=== PATIENT | female | born 1935 | race Caucasian/White ===

== ENCOUNTER 2017-06-18 13:42 | Outpatient (CLI) | payer MEDICARE, BC ==
--- NOTE | 2017-06-18 15:36 | MRI ---
MRI LUMBAR SPINE WITHOUT CONTRAST: Date: 06/18/17 HISTORY: Lumbar radiculopathy. Low back pain radiating down right leg since November 2016. COMPARISON: None. TECHNIQUE: MRI lumbar spine is performed without intravenous Gadolinium administration. Multisequential, multipl faby imaging is performed. FINDINGS: Appropriate T1 marrow signal intensity of the lumbar vertebra. Lumbar spine vertebral body height is maintained. No fracture. Intrinsic T1 and T2 hyperintensity at the L4 level compatible with a hemangi nydia. There are predominantly Type II Modic changes at the L5-S1 disc space. Symmetric signal intensity of the psoas muscles. Bilateral parapelvic cysts are noted. Conus medullaris terminates at the superior aspect of L1. No significant STIR hyperintensity to suggest edema of the vertebral bodies or ligamentous injury. Mi ld hyperintensity on the right aspect of the L4-L5 disc space due to Type I Modic change. T12-L1: Adequate disc hydration. No significant central canal stenosis or foraminal narrowing. L1-L2: Adequate disc hydration. No significant central canal stenosis or foraminal narrowing. L2-3: Adequate disc hydration. Minimal central disc bulge with a T2 hyperintensity suggesting an annular fi ssure. There is associated minimal protrusion. Mild ligamentum flavum thickening and facet hypertroph y. Overall, mild central canal stenosis. Neural foramina are patent bilaterally. L3-L4: Desiccation with mild loss of disc space height. There is a small left subarticular and left foramina l disc bulge with faint T2 hyperintensity suggesting a very tiny annular fissure. There is mild narro wing of the left subarticular zone without significant obscuration traversing left L3 nerve root. Ove rall, mild central canal stenosis. Right neural foramen is patent. Mild left foraminal narrowing. L4-L5: Desiccation with mild loss of disc space height. Generalized disc bulge, ligamentum flavum thickening , and facet hypertrophy result in mild to moderate central canal stenosis. Narrowing of both subartic ular zones with partial obscuration of bilateral traversing L5 nerve roots. Moderate right and mild l eft foraminal narrowing. L5-S1: Desiccation with mild loss of disc space height. Generalized disc bulge with disc material encroachin g on both subarticular zones. Partial obscuration of bilateral S1 nerve roots. Moderate to severe hernán ateral foraminal narrowing. 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 POS: [facility]
== END 2017-06-18 13:43 | disposition home or self-care (01) ==
LOC: SCSMRI 13:42
PROVIDERS: ATTEND Family Medicine
DX: M47.26 Other spondylosis with radiculopathy, lumbar region (principal)
CPT/HCPCS: 72148

== ENCOUNTER 2017-07-17 12:49 | Outpatient (CLI) | payer MEDICARE, BC ==
[2017-07-17 14:12] LABS: Hemoglobin 13.6 g/dL (12.0-16.0); Mean Corpuscular HGB CONC 33.3 g/dL (32.0-36.0); Mean Corpuscular Volume 96.1 fl (81.0-99.0); Platelet Count 217 thou/uL (130-400); RBC Distribution Width 12.2 % (11.5-14.5); Red Blood Cell (RBC) Count 4.26 mill/uL (4.20-5.40); White Blood Cell (WBC) Count 6.6 thou/uL (4.8-10.8)
[2017-07-17 14:18] LABS: PTT 26.3 SEC (22.9-36.1); Prothrombin Time 13.7 SEC (12.0-14.7)
[2017-07-17 14:37] LABS: ALT (SGPT) 16 U/L (8-55); AST (SGOT) 18 U/L (5-34); Alkaline Phosphatase 41 U/L (40-150); Anion Gap 9 mmol/L (10-20); BUN (Urea Nitrogen) 21 mg/dL (9.8-20.1); Bilirubin, Total 0.5 mg/dL (0.2-1.2); Calc. Creatinine Clearance 0 mL/min (70-130); Calcium 9.7 mg/dL (7.8-10.44); Carbon Dioxide 30 mmol/L (23-31); Chloride 105 mmol/L (98-107); Estimated GFR-MDRD 60; Globulin 3.4 g/dL (2.4-3.5); Glucose 93 mg/dL (83-110); Potassium 4.4 mmol/L (3.5-5.1); Protein, Total 7.4 g/dL (6.0-8.3); Sodium 140 mmol/L (136-145)
== END 2017-07-17 12:50 | disposition home or self-care (01) ==
LOC: LABBT 12:49
PROVIDERS: ATTEND Internal Medicine Cardiovascular Disease
DX: Z01.818 Encounter for other preprocedural examination (principal); K80.20 Calculus of gallbladder without cholecystitis without obstruction
CPT/HCPCS: 80053; 85027; 85610; 85730; 93005; 93010

== ENCOUNTER 2017-07-22 06:03 | Observation (INO) | payer MEDICARE, BC ==
[2017-07-22] MEDS ORDERED: Lidocaine 1% (PF) 30 ML VIAL ONE (06:36)
[2017-07-22] MEDS ORDERED: Heparin 10,000 UNITS/1 ML VIAL ONE (07:10)
[2017-07-22] MEDS ORDERED: Fentanyl 100 MCG/2 ML VIAL ONE (07:12)
[2017-07-22] MEDS ORDERED: Midazolam HCl 2 mg/2 ml Vial ONE (07:12)
[2017-07-22] MEDS ORDERED: Nitroglycerin 100MG/250ML BOT 250 ML ONE (07:42)
[2017-07-22] MEDS ORDERED: Clopidogrel Bisulfate 300 MG TAB ONE ×2 (07:46)
[2017-07-22] MEDS ORDERED: Bivalirudin 250 MG VIAL ONE ×3 (07:46→08:15)
--- NOTE | 2017-07-22 08:07 | RAD ---
SINGLE VIEW OF CHEST: Date: 07/22/17 COMPARISON: None. HISTORY: Preoperative radiograph for cardiac catheterization. FINDINGS: Single view of the chest shows a normal sized cardiomediastinal silhouette. There is no evidence of c onsolidation, mass, or pleural effusion. The bones are unremarkable. IMPRESSION: No evidence of acute cardiopulmonary disease. POS: [facility]
--- NOTE | 2017-07-22 09:02 | CCL ---
CARDIAC CATHETERIZATION REPORT: DATE: 07/22/17. PROCEDURE: selective coronary arteriography, left ventriculography intracoronary nitroglycerin. Bare metal stent placement in the mid right coronary artery ( spinal injections in the near future) INDICATION: Proximal to mid inferior wall ischemia on cardiac PET scan. DESCRIPTION OF PROCEDURE: The patient was brought to the Cardiac Lift Operator and the right groin was prepped and draped in the usual fashion. 1% lidocaine was infiltrated. A 6 [place] sheath was placed into the right femoral artery and 3000 units of heparin were given. A 6 [place] angulated pigtail was inserted and pressures obtained. Left ventriculogram was performed using 30 mL of contrast at 12 mL per second in an [place] 30 degree projection. Pressures were obtained and the pigtail was removed. A 6 [place] Delgado left 4 was inserted over an exchange wire followed by a 6- [place] Delgado right 4 over an exchange wire for coronary arteriography. A 6-[place] right 4 guide was inserted over an exchange wire. Intracoronary nitroglycerin 200 mcg was given. A floppy choice wire was advanced into the distal right coronary artery. The more proximal of the 2 mid RCA lesions was predilated with Emerge 2.5 x 15 mm balloon. This was then removed and Rebel 3.0 x 12 mm stent was then advanced to the more distal of the mid RCA lesions. This was then deployed. Distal to the stent, there appeared to be bending of the artery and it was not felt that this was a dissection. The more proximal of the 2 mid RCA lesions then underwent placement of a Rebel 3.0 x 16 mm stent with good results. The wire was then pulled back across the area in question distal to the most distal stent and there did not appear to be any dissection. The wire was then removed and the final injections were performed. During the procedure, the patient received Fentanyl 25 mg and Versed 1 mg for conscious sedation. Also, Plavix 600 mg p.o. was given and Angiomax bolus and drip were given. The sheaths were sutured in place. The patient was transferred to the holding area in stable condition. RESULTS: PRESSURES: Aorta 176/90, mean of 126 Left Ventricle 151/2 LEFT VENTRICULOGRAM: there was normal left ventricular contractility with ejection fraction of 50-55% . CORONARY ARTERIOGRAPHY: 1. Left main was normal. 2. The LAD continued to have good mid LAD stent result disease (September 2009) Promus 3.0 x 15. The second diagonal had a 99% stenosis and was less than a 1 mm vessel. The second diagonal filled retrograde from the left. 3. The circumflex continued to have good obtuse marginal-1 stent result (September 2009 Promus 2.5 x 12, both inserted in [place]). 4. The right coronary artery had a 90% mid stenosis followed by 70%. INTERVENTION RESULTS: The more distal of the mid lesions was initially 70%. Final lesion was 0%. The more proximal to mid RCA lesion was initially 90% and final lesion was 0%. The stents were not overlapping. IMPRESSION: 1. Three-vessel coronary artery disease. 2. Normal left ventricular function. 3. Successful bare metal stent placement in the right coronary artery. POS: [facility]
[2017-07-22] MEDS ORDERED: Iopamidol 370 76% 50 ML VIAL FS ONE (13:55)
[2017-07-22] MEDS ORDERED: Iopamidol 370 76% 100 ML VIAL ONE (13:55)
[2017-07-22] MEDS ORDERED: traMADol HCl 50 MG TAB ONE (14:08)
[2017-07-22] MEDS ORDERED: Sodium Chloride 0.9% 1,000 ML IV SCH (15:18)
[2017-07-22] MEDS ORDERED: ALPRAZolam 0.25 MG TAB PO PRN (15:18)
[2017-07-22] MEDS ORDERED: traMADol HCl 50 MG TAB PO PRN (15:18)
[2017-07-22 15:33] VITALS: BMI 29.5
[2017-07-22] MEDS ORDERED: Aspirin 81 mg Enteric Coated Tablet PO SCH (17:10)
[2017-07-22] MEDS ORDERED: Clopidogrel Bisulfate 75 MG TAB PO SCH (17:15)
[2017-07-22] MEDS ORDERED: Lisinopril 2.5 MG TAB PO SCH (17:15)
--- NOTE | 2017-07-22 21:06 | EKG ---
Test Reason : POST STENTS X 2-RCA Blood Pressure : / mmHG Vent. Rate : 068 BPM Atrial Rate : 068 BPM P-R Int : 162 ms QRS Dur : 090 ms QT Int : 414 ms P-R-T Axes : 033 -28 009 degrees QTc Int : 440 ms Normal sinus rhythm Minimal voltage criteria for LVH, may be normal variant Septal infarct (cited on or before 17-JUL-2017) (Not definitively seen on 07/22/17 tracing. Abnormal ECG When compared with ECG of 17-JUL-2017 12:39, (Unconfirmed) Questionable change in initial forces of Anteroseptal leads Nonspecific T wave abnormality no longer evident in Lateral leads Confirmed by DEEPTHI MONET ([id number]) on 07/22/2017 9:06:28 PM Referred By: ELIZABETH Confirmed By:DEEPTHI MONET
[2017-07-23 05:13] LABS: #Eosinphils 0.3 thou/uL (0.0-0.7); #Lymphocytes 1.9 thou/uL (1.20-3.40); #Monocytes 0.5 thou/uL (0.11-0.59); #Neutrophils 3.8 thou/uL (1.40-6.50); %Basophils 0.7 % (0.0-1.0); %Eosinophils 4.6 % (0.0-10.0); %Lymphocytes 29.5 % (21.0-51.0); %Monocytes 7.6 % (0.0-10.0); %Neutrophils 57.6 % (42.0-75.0); Hemoglobin 12.5 g/dL (12.0-16.0); Mean Corpuscular HGB CONC 33.4 g/dL (32.0-36.0); Mean Corpuscular Hemoglobin 32.1 pg (27.0-31.0); Mean Corpuscular Volume 96.1 fl (81.0-99.0); Mean Platelet Volume 7.7 fL (7.4-10.4); Platelet Count 191 thou/uL (130-400); RBC Distribution Width 12.2 % (11.5-14.5); Red Blood Cell (RBC) Count 3.89 mill/uL (4.20-5.40); White Blood Cell (WBC) Count 6.5 thou/uL (4.8-10.8)
[2017-07-23 05:21] LABS: ALT (SGPT) 12 U/L (8-55); AST (SGOT) 16 U/L (5-34); Albumin 3.5 g/dL (3.4-4.8); Alkaline Phosphatase 41 U/L (40-150); Anion Gap 8 mmol/L (10-20); BUN (Urea Nitrogen) 20 mg/dL (9.8-20.1); Bilirubin, Total 0.8 mg/dL (0.2-1.2); Calc. Creatinine Clearance 62 mL/min (70-130); Calcium 8.8 mg/dL (7.8-10.44); Carbon Dioxide 28 mmol/L (23-31); Chloride 103 mmol/L (98-107); Estimated GFR-MDRD 61; Globulin 2.8 g/dL (2.4-3.5); Glucose 101 mg/dL (83-110); Protein, Total 6.3 g/dL (6.0-8.3); Sodium 135 mmol/L (136-145)
[2017-07-23] MEDS ORDERED: Vit A,C & E/Lutein/Minerals Tablet PO SCH (09:00)
[2017-07-23] MEDS ORDERED: Lisinopril 2.5 MG TAB PO SCH (09:00)
[2017-07-23] MEDS ORDERED: Aspirin 81 mg Enteric Coated Tablet PO SCH ×2 (09:00)
[2017-07-23] MEDS ORDERED: Clopidogrel Bisulfate 75 MG TAB PO SCH (09:00)
[2017-07-23] MEDS ORDERED: Ubidecarenone 50 MG CAP PO SCH (09:00)
[2017-07-23] MEDS ORDERED: Potassium Chloride 8 MEQ TAB PO SCH (09:00)
[2017-07-23 10:23] VITALS: BP 124/57; TEMP 98.2
--- NOTE | 2017-07-23 18:46 | DIS ---
DISCHARGE DIAGNOSES: 1. Placement of REBEL 3.0 x 12 mm stent in the mid right coronary artery and proximal to this, but n ot overlapping, REBEL 3.0 x 16 mm stent. 2. Proximal to mid inferior wall ischemia, on cardiac PET. 3. Previous Promus stents in the left anterior descending and circumflex in 2009 and await those con tinued good results at this time. 4. Myocardial infarction in 2009. 5. Hypertension. 6. Hypercholesterolemia, under poor control, also pain with statins. Most recent LDL 87, on no medi cations. 7. Venous insufficiency. DISCHARGE MEDICATIONS: Livalo 1 mg 1/2 tablet daily will be started. Ecotrin 81 mg daily, Plavix 75 mg daily x1 month only, Xanax 0.25 p.r.n., calcium, magnesium, zinc 1 daily, fenofibrate 40 mg daily , isosorbide mononitrate 30 mg 1/2 daily, lisinopril 2.5 daily, potassium gluconate 500 daily, tramad ol 50 mg q.8 hours p.r.n., CoQ10 of 100 mg daily, multivitamins. DISCHARGE DISPOSITION: The patient will be seen in 3 months for fasting lipid profile and comprehens gutierrez metabolic profile. If she does have muscle aches with statins, she was instructed to call us and consideration will be given to injectable medication. HOSPITAL COURSE: Ms. Cuevas complained of exertional chest discomfort when she had been working in [employer], relieved with rest in 3-4 minutes. She underwent cardiac PET scan, which revealed proxima l and mid inferior wall ischemia. She underwent cardiac catheterization, which revealed continued go od mid LAD and obtuse marginal 1 stent. The right coronary artery had a 90% mid stenosis followed by another 70% mid stenosis. She underwent placement of REBEL 3.0 x 12 mm and 3.0 x 16 mm. The stents were not overlapping. She was observed overnight and then discharged. She will be given a trial of low dose Livalo.
[2017-07-23] MEDS ORDERED: Fenofibrate Nanocrystallized 145 MG TAB PO SCH (21:00)
--- NOTE | 2017-07-24 08:05 | EKG ---
Test Reason : Blood Pressure : / mmHG Vent. Rate : 075 BPM Atrial Rate : 075 BPM P-R Int : 158 ms QRS Dur : 088 ms QT Int : 410 ms P-R-T Axes : 048 -27 -12 degrees QTc Int : 457 ms Normal sinus rhythm Minimal voltage criteria for LVH, may be normal variant Borderline ECG When compared with ECG of 22-JUL-2017 09:16, No significant change was found Confirmed by DEEPTHI MONET ([id number]) on 07/24/2017 8:05:07 AM Referred By: ELIZABETH Confirmed By:DEEPTHI MONET
== END 2017-07-23 11:29 | disposition home or self-care (01) ==
LOC: CCL 06:03 → INTOOBSV 12:27 → 2NO 12:27
PROVIDERS: ADMIT Internal Medicine Cardiovascular Disease; ATTEND Internal Medicine Cardiovascular Disease
PROC: 02713EZ Dilation of Coronary Artery, Two Arteries with Two Intraluminal Devices, Percutaneous Approach (ICD-10-PCS; principal; 2017-07-22)
PROC: 02703ZZ Dilation of Coronary Artery, One Artery, Percutaneous Approach (ICD-10-PCS; 2017-07-22)
PROC: 4A023N8 Measurement of Cardiac Sampling and Pressure, Bilateral, Percutaneous Approach (ICD-10-PCS; 2017-07-22)
PROC: B2111ZZ Fluoroscopy of Multiple Coronary Arteries using Low Osmolar Contrast (ICD-10-PCS; 2017-07-22)
DX: I25.10 Atherosclerotic heart disease of native coronary artery without angina pectoris (principal); I25.2 Old myocardial infarction; I10 Essential (primary) hypertension; E78.00 Pure hypercholesterolemia, unspecified; E78.5 Hyperlipidemia, unspecified; K21.9 Gastro-esophageal reflux disease without esophagitis; G47.00 Insomnia, unspecified; G25.0 Essential tremor; J32.9 Chronic sinusitis, unspecified; I87.2 Venous insufficiency (chronic) (peripheral); E66.9 Obesity, unspecified; Z68.29 Body mass index [BMI] 29.0-29.9, adult; Z79.899 Other long term (current) drug therapy; Z88.8 Allergy status to other drugs, medicaments and biological substances; Z95.5 Presence of coronary angioplasty implant and graft
CPT/HCPCS: 71045; 80053; 85025; 85347 ×2; 92928; 93005 ×2; 93458; 93798; C1725; C1769 ×2; C1876; C1887; G0378; 36415; 93010; 99152; 99153; 99156; J0583; J1644; J2001; J2250; J3010